=== PATIENT | male | born 1960 | race Caucasian/White ===

== ENCOUNTER 2020-12-04 10:01 | Observation (INO) | payer OTHER ==
[~2020-12-04] VITALS: Ht 165.1 cm; Wt 117.9 kg
[2020-12-04 11:26] LABS: HEMOGLOBIN 11.3 gm/dl (14.0-17.5); RED BLOOD COUNT 3.63 M/UL (4.20-5.50); WHITE BLOOD COUNT 5.4 K/UL (4.5-11.0)
[2020-12-04 11:59] LABS: BUN/CREATININE RATIO 18 (0-10)
[2020-12-04] MEDS ORDERED: PRAVASTATIN SOD20 MG PO (13:09)
[2020-12-04] MEDS ORDERED: LORATADINE10 MG PO (13:10)
[2020-12-04] MEDS ORDERED: HYDROCHLOROTH12.5 MG PO (13:10)
[2020-12-04 19:30] LABS: HEMOGLOBIN 11.4 gm/dl (14.0-17.5); RED BLOOD COUNT 3.64 M/UL (4.20-5.50); WHITE BLOOD COUNT 5.8 K/UL (4.5-11.0)
[2020-12-05 02:10] LABS: HEMOGLOBIN 11.2 gm/dl (14.0-17.5); RED BLOOD COUNT 3.59 M/UL (4.20-5.50); WHITE BLOOD COUNT 6.9 K/UL (4.5-11.0)
[2020-12-05 02:30] LABS: BUN/CREATININE RATIO 17 (0-10)
== END 2020-12-05 17:33 | disposition other institution (70) ==
LOC: ER1 10:01 → CDU 12:50 → MED SURG 4 14:08
PROVIDERS: Physician Assistant; Physician Assistant Medical; ADMIT Internal Medicine
DX: I21.4 Non-ST elevation (NSTEMI) myocardial infarction (principal); I20.9 Angina pectoris, unspecified; E87.6 Hypokalemia; I10 Essential (primary) hypertension; E78.5 Hyperlipidemia, unspecified; D64.9 Anemia, unspecified; E66.9 Obesity, unspecified; R91.8 Other nonspecific abnormal finding of lung field; R94.31 Abnormal electrocardiogram [ECG] [EKG]; Z79.899 Other long term (current) drug therapy; Z20.822 Contact with and (suspected) exposure to COVID-19; Z85.038 Personal history of other malignant neoplasm of large intestine; Z82.49 Family history of ischemic heart disease and other diseases of the circulatory system
CPT/HCPCS: ECHO; 36415; 71045; 71046; 80048; 80053; 80061; 82550; 82553; 83735; 83874; 84484; 85025; 85027; 85610; 85730; 93005; 93306; 96374; 96376; 99152; 99153; 99285; C1769; G0378; J1644; J2250; J3010; J7040; Q9967; U0002

== ENCOUNTER 2021-03-02 09:13 | Emergency (ER) | payer OTHER ==
[~2021-03-02 09:13] MED LIST: HYDROCHLOROTH12.5 MG PO; LORATADINE10 MG PO; PRAVASTATIN SOD20 MG PO
[2021-03-02 10:06] LABS: HEMOGLOBIN 10.2 gm/dl (14.0-17.5); RED BLOOD COUNT 3.32 M/UL (4.20-5.50); WHITE BLOOD COUNT 7.1 K/UL (4.5-11.0)
[2021-03-02 10:48] LABS: BUN/CREATININE RATIO 21 (0-10)
[2021-03-02] MEDS ORDERED: ASPIRIN EC81 MG PO (17:47)
== END 2021-03-02 19:20 | disposition home or self-care (01) ==
LOC: ER1 09:13
PROVIDERS: Emergency Medicine
DX: R06.00 Dyspnea, unspecified (principal); I10 Essential (primary) hypertension; E11.9 Type 2 diabetes mellitus without complications; E78.5 Hyperlipidemia, unspecified; I25.10 Atherosclerotic heart disease of native coronary artery without angina pectoris; Z95.1 Presence of aortocoronary bypass graft
CPT/HCPCS: 71045; 80053; 82550; 82553; 83690; 83874; 83880; 84484; 85025; 85379; 85610; 85730; 99285; Q9967

== ENCOUNTER → 2021-03-07 | Outpatient (CLI) | payer OTHER ==
[~2021-03-07] MED LIST changes: +ASPIRIN EC81 MG PO
== END ==
LOC: KOH-I 12:08
DX: M89.9 Disorder of bone, unspecified (principal); M84.48XD Pathological fracture, other site, subsequent encounter for fracture with routine healing
CPT/HCPCS: 77075